=== PATIENT | male | born 1970 | race Caucasian/White ===

== ENCOUNTER 2024-03-27 12:35 | Emergency (ER) | payer SELFPAY ==
[~2024-03-27] VITALS: Ht 160 cm; Wt 73.5 kg
[2024-03-27 13:05] VITALS: BP 168/83; PULSE 57; RESP 16; TEMP 97.1; O2SAT 99
[2024-03-27] MEDS: LIDOCAINE MPF 1% 10 MG/ML VIAL INJ ONE (13:42)
[2024-03-27] MEDS: NEOMYCIN/POLYMYXIN/BACITRACIN 0.9 GM/1 PKT TP ONE (13:42)
[2024-03-27] MEDS ORDERED: CEPH-588 PO (14:15)
[2024-03-27] MEDS: INSULIN REGULAR, HUMAN 100 UNIT/ML VIAL SUBQ ONE (15:23)
== END 2024-03-27 15:45 | disposition home or self-care (01) ==
LOC: MED 12:35
DX: L02.511 Cutaneous abscess of right hand (principal); E11.9 Type 2 diabetes mellitus without complications; Z79.899 Other long term (current) drug therapy
CPT/HCPCS: 10060; 82948; 96372; 99283; J1815; J2001